=== PATIENT | female | born 1940 | race Two or more races ===

== ENCOUNTER 2024-04-13 13:18 | Inpatient (IN) | payer OTHER ==
[~2024-04-13] VITALS: Ht 157.5 cm; Wt 67.1 kg
--- NOTE | 2024-04-13 13:55 | NUR ---
PACIENTE ALERTA Y ORIENTADA X3. REFIERE COMENZAR CON [facility], TOS Y CONGESTION NASAL DESDE HACE VARIOS [place]. SE SOFIA S/V Y SE UBICA.
[2024-04-13] MEDS ORDERED: HYDROCODONE/CHLORPHEN P-STIREX 5 ML ML PO STA (15:01)
[2024-04-13 15:37] LABS: HEMATOCRIT 34.3 % (36.0-45.00); HEMOGLOBIN 11.4 g/dL (12.0-15.00); MEAN CELL VOLUME 88.1 fL (80.00-100.00); MEAN CORPUSCULAR HEMOGLOBIN 29.4 pg (27.00-32.0); MEAN CORPUSCULAR HGB CONC 33.3 g/dl (32.0-36.0); PLATELET COUNT 301 K/uL (150-450); RED BLOOD COUNT 3.89 M/uL (4.00-6.00); RED CELL DISTRIBUTION WIDTH 17.8 % (11.5-14.5)
--- NOTE | 2024-04-13 15:39 | NUR ---
SE ORIENTA A PACIENTE SOBR ETRATAMIENTO MEDICO LA CUAL INDICA ENTENDER Y ACEPTAR. SE SOFIA MUESTRAS DE LAB Y SE ENVIAN A LABORATORIO, SE ADMINISTRAN MEDICAMENTOS CALI ORDEN MEDICA.
[2024-04-13] MEDS ORDERED: METHYLPREDNISOLONE SOD SUCC 125 MG VIAL IV STA (16:58)
[2024-04-13] MEDS ORDERED: 0.9 % SODIUM CHLORIDE 1,000 ML IV STA (16:58)
[2024-04-13] MEDS ORDERED: LEVALBUTEROL HCL 1.25 MG/3 ML SOLUTION IH SCH (17:00)
[2024-04-13] MEDS ORDERED: IPRATROPIUM BROMIDE 0.5 MG/2.5 ML AMPUL.NEB IH SCH ×2 (17:00→20:04)
[2024-04-13] MEDS ORDERED: BUDESONIDE 0.5 MG/2 ML AMPUL.NEB IH SCH (17:00)
[2024-04-13] MEDS ORDERED: CEFTRIAXONE SODIUM 2,000 MG VIAL IV STA (17:00)
[2024-04-13 17:43] LABS: ABG PH 7.463 (7.35-7.45); ABG PO2 61.7 mmHg (80-100); ABG pCO2 39.6 mmHg (35-45); BASE EXCESS 3.8 mmol/l; BICARBONATE 27.7 mmol/l (23-25); allen test SATISFACTORY; o2 21 %; puncture site RADIAL RIGHT
--- NOTE | 2024-04-13 18:29 | NUR ---
SE ORIENTA A PACIENTE SOBRE TRATAMIENTO MEDICO, SE REALIZA CANALIZACION A PACIENTE Y SE SOFIA MUESTRAS DE LABORATORIO. CANALIZACION PATENTE ERNA DE EDEMA Y ERITEMA. SE ADMINISTRAN MEDICAMENTOS CALI ORDEN MEDICA BAJO MEDIDAS ASEPTICAS. PACIENTE SE ADMITE A AREA DE OBSERVACION, LA MISMA PENDIENTE A CT
[2024-04-13] MEDS ORDERED: FUROsemide 40 MG/4 ML VIAL IV ONE (20:00)
[2024-04-13] MEDS ORDERED: ACETAMINOPHEN 500 MG GEL..CAP PO PRN (20:00)
[2024-04-13] MEDS ORDERED: INSULIN LISPRO 1,000 UNIT/10 ML UNITS SUBCUTANEO PRN (20:15)
[2024-04-13] MEDS ORDERED: DEXTROSE 50 % IN WATER 0.5 G/ML DISP.SYRIN IV PRN (20:15)
[2024-04-13] MEDS ORDERED: GUAIFEN/DEXTROMETHORPHAN/PE 10 ML BLIST.PACK PO SCH (21:00)
[2024-04-13 21:08] VITALS: BP 130/79
[2024-04-13 21:33] LABS: INR 1.15; PARTIAL THROMBOPLASTIN TIME 28.2 SECONDS (22.0-34.0); PROTHROMBIN TIME 12.4 SECONDS (9.0-11.5)
[2024-04-14 01:00] VITALS: BP 137/77; O2SAT 96
[2024-04-14] MEDS ORDERED: FUROsemide 20 MG/2 ML VIAL IV SCH (01:00)
[2024-04-14 02:45] VITALS: BP 116/73; O2SAT 96
[2024-04-14] MEDS ORDERED: AMIODARONE HCL 200 MG TABLET PO SCH ×3 (05:00→21:00)
[2024-04-14] MEDS ORDERED: APIXABAN 5 MG TABLET PO SCH ×2 (05:00→21:00)
[2024-04-14 08:43] LABS: ALBUMIN 3.7 gm/dL (3.4-5.0); BILIRUBIN TOTAL 0.78 mg/dL (0.3-1.2); CALCIUM 8.5 mg/dL (8.5-10.1); CREATININE SERUM 1.33 mg/dL (0.55-1.02); GFR 38.01; GLOBULINA 3.2 G/DL (2.4-3.5); POTASSIUM 3.76 mEq/L (3.5-5.1); TOTAL PROTEIN 6.9 gm/dL (6.4-8.2); TSH 0.852 uIU/mL (0.358-3.74)
[2024-04-14] MEDS ORDERED: ATORVASTATIN CALCIUM 40 MG TABLET PO SCH (09:00)
[2024-04-14] MEDS ORDERED: QUETIAPINE FUMARATE 25 MG TABLET PO SCH (09:00)
[2024-04-14] MEDS ORDERED: METOPROLOL SUCCINATE 25 MG TAB.SR.24H PO SCH ×2 (09:00→10:17)
[2024-04-14] MEDS ORDERED: SPIRONOLACTONE 25 MG TABLET PO SCH (09:00)
[2024-04-14 10:21] VITALS: BP 120/78; O2SAT 98
[2024-04-14] MEDS ORDERED: EMPAGLIFLOZIN 10 MG TABLET PO SCH (17:00)
[2024-04-14 18:27] VITALS: BP 114/77
[2024-04-14] MEDS ORDERED: FUROsemide 40 MG/4 ML VIAL IV SCH (21:00)
[2024-04-15 01:02] VITALS: BP 130/83; O2SAT 96
[2024-04-15 08:19] LABS: CALCIUM 9.2 mg/dL (8.5-10.1); CREATININE SERUM 1.43 mg/dL (0.55-1.02); GFR 34.96; POTASSIUM 4.6 mEq/L (3.5-5.1)
[2024-04-15 08:21] VITALS: BP 123/85; O2SAT 97
[2024-04-15] MEDS ORDERED: METOPROLOL SUCCINATE 25 MG TAB.SR.24H PO SCH (09:00)
[2024-04-15] MEDS ORDERED: 0.9 % SODIUM CHLORIDE 500 ML IV ONE (12:45)
[2024-04-15 19:14] VITALS: BP 133/89
[2024-04-16] MEDS ORDERED: METOPROLOL TARTRATE 5MG/5ML AMPUL IV STA (01:11)
[2024-04-16 01:24] VITALS: BP 138/85; O2SAT 96
[2024-04-16] MEDS ORDERED: AMIODARONE HCL 50 MG/ML AMPUL IV STA (05:57)
[2024-04-16 06:44] LABS: CALCIUM 9.4 mg/dL (8.5-10.1); CREATININE SERUM 1.53 mg/dL (0.55-1.02); GFR 32.33; POTASSIUM 3.62 mEq/L (3.5-5.1)
[2024-04-16] MEDS ORDERED: METOPROLOL SUCCINATE 50 MG TAB.SR.24H PO SCH (09:00)
[2024-04-16 10:35] VITALS: BP 134/78; O2SAT 97
== END 2024-04-16 16:20 | disposition home or self-care (01) | DRG 291 ==
LOC: ER 13:20 → MEDI 20:32
PROVIDERS: General Practice; ADMIT Student in an Organized Health Care Education/Training Program; ATTEND Student in an Organized Health Care Education/Training Program
PROC: BB24ZZZ Computerized Tomography (CT Scan) of Bilateral Lungs (ICD-10-PCS; principal; 2024-04-13)
PROC: B246ZZZ Ultrasonography of Right and Left Heart (ICD-10-PCS; 2024-04-13)
PROC: 3E0F7GC Introduction of Other Therapeutic Substance into Respiratory Tract, Via Natural or Artificial Opening (ICD-10-PCS; 2024-04-13)
PROC: 4A12X4Z Monitoring of Cardiac Electrical Activity, External Approach (ICD-10-PCS; 2024-04-14)
DX: I11.0 Hypertensive heart disease with heart failure (principal); I50.21 Acute systolic (congestive) heart failure; J98.11 Atelectasis; J90 Pleural effusion, not elsewhere classified; N17.9 Acute kidney failure, unspecified; R09.02 Hypoxemia; I48.91 Unspecified atrial fibrillation